=== PATIENT | female | born 1975 | race Two or more races ===

== ENCOUNTER 2021-06-24 19:12 | Emergency (ER) | payer OTHER ==
[~2021-06-24] VITALS: Ht 152.4 cm; Wt 76.7 kg
[2021-06-24] MEDS ORDERED: TENORMIN25 MG (19:19)
[2021-06-24] MEDS ORDERED: CLONAZEPAM0.5 MG (19:20)
[2021-06-24] MEDS ORDERED: AMITRIPTYLINE H25 MG (19:21)
== END 2021-06-24 20:08 | disposition home or self-care (01) ==
LOC: ER 19:12
DX: S61.319A Laceration without foreign body of unspecified finger with damage to nail, initial encounter (principal); W26.0XXA Contact with knife, initial encounter; Y93.9 Activity, unspecified; Y92.9 Unspecified place or not applicable; Y99.9 Unspecified external cause status